=== PATIENT | female | born 1945 | race Caucasian/White ===

== ENCOUNTER 2019-11-05 16:56 | Inpatient (IN) ==
[2019-11-05] MEDS ORDERED: ASPIRIN PO ONE (17:07)
[2019-11-05] MEDS ORDERED: CARDIZEM IV ONE ×2 (17:27→20:19)
[2019-11-05 17:32] LABS: BASO# 0.04 X1000 (0.0-0.2); BASO% 0.4 % (0.0-0.8); EOS# 0.23 X1000 (0.0-0.7); EOS% 2.1 % (0.0-10.0); HEMATOCRIT 40.6 % (37.0-47.0); HEMOGLOBIN 13.2 g/dL (12.0-16.0); IMM GRAN# 0.02 X1000 (0.0-0.04); IMM GRAN% 0.2 % (0.0-0.5); LYMPH# 1.38 X1000 (1.2-3.4); LYMPH% 12.4 % (20.5-51.1); MCH 29.1 PG (27-31); MCHC 32.5 g/dL (33-37); MCV 89.4 FL (81-99); MONO# 1.51 X1000 (0.11-0.59); MONO% 13.6 % (1.7-9.3); MPV 11.6 FL (7.4-10.4); NEUT# 7.91 X1000 (1.4-6.5); NEUT% 71.3 % (42.2-75.2); PLT 248 X1000 (130-400); RBC 4.54 XMIL (4.2-5.4); RDW 14.1 % (11.5-14.5); WBC 11.09 X1000 (4.8-10.8)
--- NOTE | 2019-11-05 17:37 | Diag Imaging Result Doc PS360 ---
EXAM: CHEST-2 VIEWS 11/05/2019 HISTORY: cp TECHNIQUE: PA and lateral chest COMMENT: There are multiple surgical clips in the left axilla. There is increased interstitial markings bilaterally. This is definitely worse than on 12/14/2018. IMPRESSION: Mild interstitial pulmonary edema. Electronically signed by Malachi Russo 11/05/2019 5:34 PM
[2019-11-05 17:43] LABS: INR 1.03; PROTIME 13.7 Seconds (11.0-16.0)
--- NOTE | 2019-11-05 17:55 | EKG Report ---
Test Performed on : 11/05/2019 5:10:47 PM Test Reason : cp Blood Pressure : / mmHG Vent. Rate : 124 BPM Atrial Rate : 113 BPM P-R Int : 000 ms QRS Dur : 106 ms QT Int : 342 ms P-R-T Axes : 000 -52 102 degrees QTc Int : 491 ms Atrial fibrillation. with rapid ventricular response. Left axis deviation Possible Anterior infarct , age undetermined ST & T wave abnormality, consider lateral ischemia Abnormal ECG No previous ECGs available Unconfirmed Result
--- NOTE | 2019-11-05 18:19 | PROVIDER DOCUMENTATION ---
This chart was entered by Isabel Krishna Scribe, acting as scribe for Kevin Harris MD. HPI-Respiratory General - General Source: patient - History of Present Illness-Resp Onset/Duration: reports: 2 days ago Timing: reports: still present Cough Quality/Degree: reports: productive cough, sputum (green) Current Respiratory Medication Therapy: Initiated see nurses note Associated Symptoms: reports: fever/chills, shortness of breath Similar Symptoms Previously?: No Recently seen or treated by another doctor?: No <Kevin Harris - Last Filed: 11/05/19 18:19> <Edgar Calabrese - Last Filed: 11/05/19 20:20> - General Chief Complaint: Shortness of Breath Stated Complaint: "ENLARGED HEART PER URGENT CARE" Time Seen by Provider: 11/05/19 17:14 Allergies/Adverse Reactions: Patient Allergies Allergy/AdvReac Type Severity Reaction Status Date / Time Sulfa (Sulfonamide AdvReac NAUSEA Verified 11/05/19 18:23 Antibiotics) Home Medications: Home Medication List Medication Instructions Recorded Confirmed Last Taken Type Duloxetine HCl 60 mg PO DAILY 11/05/19 11/05/19 11/04/19 History Levothyroxine [Synthroid] 150 mcg PO DAILY 11/05/19 11/05/19 11/05/19 History Pramipexole Di-HCl [Pramipexole 0.5 mg PO DAILY 11/05/19 11/05/19 11/04/19 History Dihydrochloride] ROSUVAstatin [Crestor] 20 mg PO DAILY 11/05/19 11/05/19 11/04/19 History - History of Present Illness-Resp Nature of Presenting Problem: 74 y/o female was sent here from urgent care with complaint of low grade fever, worsening SOB, and cough with green sputum production times two days. The patient states she was recently diagnosed with a-fib two weeks ago while being screened for GI procedure with Dr. Mancini. (Kevin Harris) Review of Systems - Adult - REVIEW OF SYSTEMS - ADULT Constitutional: reports: fever. denies: night sweats, weight loss Eyes: reports: no symptoms reported Ears, Nose, Mouth & Throat: reports: no symptoms reported Cardiovascular: reports: no symptoms reported Respiratory: reports: cough (productive), excessive sputum production (green), shortness of breath Gastrointestinal: denies: diarrhea, nausea, vomiting Genitourinary: reports: no symptoms reported Musculoskeletal: reports: no symptoms reported Integumentary: reports: no symptoms reported Neurological: reports: no symptoms reported Psychiatric: reports: no symptoms reported Endocrine: reports: no symptoms reported Hematologic/Lymphatic: reports: no symptoms reported Allergic/Immunologic: reports: no symptoms reported All Other Systems: Reviewed and Negative <Kevin Harris - Last Filed: 11/05/19 18:19> Past History - Adult - PAST MEDICAL HISTORY-ADULT Review of Records: reports: Old Records Reviewed, Nursing Assessment Review, Medications Reviewed - IMMUNIZATION STATUS Childhood Immunizations: See Nurse Assessment Flu Vaccine: See Nurse Assessment - SOCIAL HISTORY Smoking: non-smoker Living Situation: family <Kevin Harris - Last Filed: 11/05/19 18:19> Physical Exam-General - PHYSICAL EXAM-ADULT Initial Vital Signs Reviewed: Yes - CONSTITUTIONAL General Appearance: alert, obese - HEAD, EARS, NOSE, MOUTH & THROAT HENMT: normocephalic/atraumatic, moist mucous membranes - NECK Neck: full range of motion, supple - RESPIRATORY Respiratory: lungs clear, normal breath sounds, wheezing, other (congestion clears with cough). negative: rales, rhonchi - CARDIOVASCULAR Cardiovascular: other (a-fib) - SKIN Integumentary: normal color, warm/dry - NEUROLOGIC Neurologic: grossly normal - PSYCHIATRIC Psych/Mental Status: normal mood/affect, normal thought content, normal thought process, oriented x 3 <Kevin Harris - Last Filed: 11/05/19 18:19> Progress - PLAN OF CARE/RESULTS Result Diagrams: 11/05/19 17:15 - EKG 1 Time of EKG reading by physician:: 17:10 EKG Read and Signed by:: Kevin Harris EKG Interpretation (*Must complete 3 of following elements*): Abnormal (ST and T wave abnormality consider lateral ischemia) Rate: 124 Rhythm: a-fib with RVR [place]: left ST Wave: non-specific ST changes Comments: possible anterior infarct age undetermined <Kevin Harris - Last Filed: 11/05/19 18:19> - PLAN OF CARE/RESULTS Result Diagrams: 11/05/19 17:15 11/05/19 18:01 - REASSESSMENT Reassessment #1 Time Reassessed: 20:16 (received @ S/[facility], pt still tachy, still SOB. Will admit) - CONSULTS/PCP/HOSPITALIST Notification #1 *Consult/PCP/Hospitalist*: Albino Time Discussed: 20:17 Consult Disposition: Will see in ED, Admit <Edgar Calabrese - Last Filed: 11/05/19 20:20> - PLAN OF CARE/RESULTS Progress/Plan/Lab Results: Vital Signs - 8 hr 11/05/19 17:03 11/05/19 17:47 11/05/19 17:53 Temperature 94 F L Pulse Rate 109 H 129 H 129 H Respiratory Rate 18 27 H 21 Blood Pressure 128/70 136/67 114/84 O2 Sat by Pulse Oximetry 96 93 L 94 L 11/05/19 18:33 11/05/19 18:42 Temperature 98.4 F Pulse Rate 129 H 120 H Respiratory Rate 18 18 Blood Pressure 118/72 O2 Sat by Pulse Oximetry 92 L 11/05/19 17:53 Influenza Screen - Final Nasopharyngeal Laboratory Results - last 24 hr 11/05/19 11/05/19 11/05/19 17:15 17:15 17:15 WBC 11.09 H RBC 4.54 Hgb 13.2 Hct 40.6 MCV 89.4 MCH 29.1 MCHC 32.5 L RDW Std Deviation 14.1 Plt Count 248 MPV 11.6 H Immature Gran % (Auto) 0.2 Neut % (Auto) 71.3 Lymph % (Auto) 12.4 L [place] % (Auto) 13.6 H Eos % (Auto) 2.1 Baso % (Auto) 0.4 Immature Gran # (Auto) 0.02 Neut # (Auto) 7.91 H Lymph # (Auto) 1.38 [place] # (Auto) 1.51 H Eos # (Auto) 0.23 Baso # (Auto) 0.04 PT 13.7 INR 1.03 PTT (Actin FS) 32.0 Sodium Potassium Chloride Carbon Dioxide Anion Gap BUN Creatinine Estimated GFR/1.73 m2 BUN/Creatinine Ratio Glucose Calculated Osmolality Calcium Magnesium Total Bilirubin AST ALT Alkaline Phosphatase Creatine Kinase Troponin T High Sens Iin-A-Qjgrzvilzmt Pept Total Protein Albumin Globulin Albumin/Globulin Ratio Plasma Lactate 1.0 TSH Thyroxine (T4) 11/05/19 11/05/19 11/05/19 18:01 18:01 18:01 WBC RBC Hgb Hct MCV MCH MCHC RDW Std Deviation Plt Count MPV Immature Gran % (Auto) Neut % (Auto) Lymph % (Auto) [place] % (Auto) Eos % (Auto) Baso % (Auto) Immature Gran # (Auto) Neut # (Auto) Lymph # (Auto) [place] # (Auto) Eos # (Auto) Baso # (Auto) PT INR PTT (Actin FS) Sodium Potassium Chloride Carbon Dioxide Anion Gap BUN Creatinine Estimated GFR/1.73 m2 BUN/Creatinine Ratio Glucose Calculated Osmolality Calcium Magnesium Total Bilirubin AST ALT Alkaline Phosphatase Creatine Kinase Troponin T High Sens 28 H Iwi-M-Kexkczomrqv Pept 882 H Total Protein Albumin Globulin Albumin/Globulin Ratio Plasma Lactate TSH 0.90 Thyroxine (T4) 9.48 11/05/19 18:01 WBC RBC Hgb Hct MCV MCH MCHC RDW Std Deviation Plt Count MPV Immature Gran % (Auto) Neut % (Auto) Lymph % (Auto) [place] % (Auto) Eos % (Auto) Baso % (Auto) Immature Gran # (Auto) Neut # (Auto) Lymph # (Auto) [place] # (Auto) Eos # (Auto) Baso # (Auto) PT INR PTT (Actin FS) Sodium 138 Potassium 3.9 Chloride 105 Carbon Dioxide 22 L Anion Gap 11 BUN 14 Creatinine 0.7 Estimated GFR/1.73 m2 > 60 BUN/Creatinine Ratio 20 Glucose 111 H Calculated Osmolality 277 Calcium 10.0 Magnesium 1.6 Total Bilirubin 0.52 AST 20 ALT 16 Alkaline Phosphatase 84 Creatine Kinase 123 Troponin T High Sens Msm-H-Mfkcofuhvln Pept Total Protein 6.6 Albumin 4.0 Globulin 2.6 Albumin/Globulin Ratio 1.5 Plasma Lactate TSH Thyroxine (T4) Orders Category Date Time Status Cardiac Monitoring DIRECTED Care 11/05/19 17:07 Active NEWS Score 2-4:Order NEWS Lactate Series NOW Care 11/05/19 17:06 Active Oxygen Therapy- ED Nursing DIRECTED Care 11/05/19 17:07 Active Saline Loc NOW Care 11/05/19 17:07 Active CHEST-2 VIEWS [RAD] Stat Exams 11/05/19 17:07 Completed CBC WITH ELECTRONIC DIFF [HEME] Stat Lab 11/05/19 17:15 Completed CK PROFILE [SP CHEM] Routine Lab 11/05/19 18:01 Completed COMPREHENSIVE METABOLIC PANEL [CHEM] Routine Lab 11/05/19 18:01 Completed INFLUENZA SCREEN A/B Stat Lab 11/05/19 17:53 Completed LACTATE, PLASMA [CHEM] Lab 11/05/19 17:15 Completed LACTATE, PLASMA [CHEM] Lab 11/05/19 20:45 Uncollected LACTATE, PLASMA [CHEM] Lab 11/05/19 23:45 Uncollected MAGNESIUM [CHEM] Routine Lab 11/05/19 18:01 Completed PRO B-NATRIURETIC PEPTIDE Routine Lab 11/05/19 18:01 Completed PROTIME WITH INR [COAG] Stat Lab 11/05/19 17:15 Completed PTT [COAG] Stat Lab 11/05/19 17:15 Completed T4 Routine Lab 11/05/19 18:01 Completed TROPONIN T HIGH SENSITIVITY Routine Lab 11/05/19 18:01 Completed TSH Routine Lab 11/05/19 18:01 Completed Albuterol 2.5MG/Ipratrop 0.5MG [Duoneb (A & A)] Med 11/05/19 18:26 Discontinued 3 ml INH NOW ONE Albuterol 2.5MG/Ipratrop 0.5MG [Duoneb (A & A)] Med 11/05/19 20:15 Once 3 ml INH NOW ONE Aspirin Med 11/05/19 17:07 Discontinued 325 mg PO NOW ONE Diltiazem [Cardizem] Med 11/05/19 17:27 Discontinued 25 mg IV NOW ONE Furosemide [Lasix] Med 11/05/19 20:09 Discontinued 40 mg IV NOW ONE Methylprednisolone Sod Succ [Solu-Medrol] Med 11/05/19 18:25 Discontinued 80 mg IV NOW ONE Aerosol Treatments Routine Oth 11/05/19 18:26 Completed Aerosol Treatments Routine Oth 11/05/19 20:15 Ordered Aerosol Treatments Stat Oth 11/05/19 18:26 Completed Aerosol Treatments Stat Oth 11/05/19 20:15 Ordered CP/SOB/Palp >45 yrs of Age Stat Oth 11/05/19 17:07 Ordered EKG [EKG] Stat Ther 11/05/19 17:07 Draft Departure <Kevin Harris - Last Filed: 11/05/19 18:19> - Departure Date of Disposition Decision: 11/05/19 Time of Disposition Decision: 20:17 Certified Medical Emergency: Emergent - Critical Care Note This patient required my direct & personal management of CC.: No <Edgar Calabrese - Last Filed: 11/05/19 20:20> - Departure DIAGNOSIS: Atrial fibrillation with rapid ventricular response, Congestive heart failure Disposition: ADMITTED INPATIENT 09 Condition: Good Referrals and Follow-Ups: None,PCP [Primary Care Provider] - Attestation - Physician/ JAIME Attestation Patient care was provided by Advanced Practice Provider:: No The physician spent face to face time with patient:: Yes Advanced Practice Provider documentation review:: Supervising physician onsite and consulted in the evaluation and care of this patient. The physician did have a face to face encounter with the patient. <Edgar Calabrese - Last Filed: 11/05/19 20:20> This chart was documented by the indicated scribe, (Isabel Krishna, Scribe) and accurately reflects the services I performed and decisions made by me, Kevin Harris MD, as attested by the provider's signature.
[2019-11-05] MEDS ORDERED: SOLU-MEDROL IV ONE (18:25)
[2019-11-05] MEDS ORDERED: DUONEB (A & A) INH ONE ×2 (18:26→20:15)
[2019-11-05 18:34] LABS: AGAP 11; ALB/GLOB RATIO 1.5; ALKALINE PHOSPHATASE 84 U/L (32-104); BUN 14 mg/dL (8-22); CHLORIDE 105 mmol/L (98-107); CK PROFILE 123 U/L (24-173); COSMO 277; CREATININE 0.7 mg/dL (0.5-0.9); ESTIMATED GFR > 60; GLUCOSE 111 mg/dL (70-104); GOT 20 U/L (10-30); GPT 16 U/L (10-36); MAGNESIUM 1.6 mg/dL (1.5-2.7); POTASSIUM 3.9 mmol/L (3.5-5.1); SODIUM 138 mmol/L (136-145); TCO2 22 mmol/L (25-35); TOTAL BILIRUBIN 0.52 mg/dL (0.20-1.00); TOTAL PROTEIN 6.6 g/dL (6.3-8.3)
[2019-11-05 18:53] LABS: T4 9.48 ug/dL (4.60-12.00); TSH 0.9 uIUmL (0.27-4.20)
[2019-11-05] MEDS ORDERED: LASIX IV ONE (20:09)
[2019-11-05] MEDS: CARDIZEM 100 MG/NS 100 MG/100 ML IVPB IV SCH (21:03)
[2019-11-05] MEDS ORDERED: ZOFRAN IV PRN (21:27)
[2019-11-05] MEDS: NS 1,000 ML IV SCH (21:30)
[2019-11-05] MEDS ORDERED: ZITHROMAX 500 MG/NS 500 MG/250 ML IVPB IV ONE (21:32)
[2019-11-05] MEDS ORDERED: NS NEB INH SCH (21:45)
--- NOTE | 2019-11-05 22:21 | HISTORY AND PHYSICAL ---
I have seen and examined Ms. Gregorio today. The was at the bedside at the time of the encounter. Oncologist is Dr. Hawkins. Cabinet Worker is Dr. Mancini. PRESENTING COMPLAINT: Abnormal heart rhythm, cough. HISTORY OF PRESENTING COMPLAINT: Ms. Gregorio is a 74-year-old elderly female who is known to have restless legs syndrome, hypothyroidism, dyslipidemia, survive of breast cancer status post left mastectomy. Patient refers that about 2 weeks ago she went to do EGD and colonoscopy and before the procedure was done pre evaluation EKG did showed that she had atrial fibrillation so the procedure was canceled and was advised to go and see her lion tamer. She went to see Dr. Mancini. Some investigations were ordered. Unfortunately about a week ago she could not do those tests because she had the flu symptoms. She has been rescheduled to see Dr. Mancini next coming Thursday. Unfortunately said she has been battling with this persistent worsened cough with dark brown expectoration so she went to an urgent care today this afternoon and was also found to be in atrial fibrillation RVR was advised to come to emergency room for further medical care. Upon presenting she was evaluated and initial EKG did show that she was in atrial fibrillation with RVR. She was given 25 mg of Cardizem however her heart rate continues to be in rapid ventricular response so she has been admitted for atrial fibrillation, RVR. PAST MEDICAL HISTORY: 1. Dyslipidemia. 2. Hypothyroidism. 3. Restless leg syndrome. 4. Survival of a breast cancer. PAST SURGICAL HISTORY: 1. Left mastectomy. 2. deliveries. 1. Total hysterectomy. FAMILY HISTORY: Positive for dad coronary artery disease also had pacemaker. ALLERGIES: To sulfa. SOCIAL HISTORY: Patient denies any tobacco use, occasionally will take a glass of wine. No recreational drug use. REVIEW OF SYSTEM: 14 point review of system conducted with Ms. Gregorio unremarkable except what we have in the HPI. OBJECTIVE: Vitals: Blood pressure is currently 118/72, pulse of 120, respiration is 18, temperature 98.4 degrees, patient is saturating 92%. General: Ms. Gregorio is a 74-year-old elderly female she is in bed. She does not seems to be in any distress however, she continues to have this deep cough. HEENT: Mucosa is pink and moist. Anicteric. Acyanotic. Neck: Supple. Chest: Air entry was bilateral reduced. There seems to be mildly prolonged expiratory phase of respiration. There is some few distant wheezing in both lung kohli. Cardiovascular: Irregularly irregular and tachycardic, no murmurs. Leo beat is at 5th intercostal space midclavicular line. There is mastectomy scar on the left anterior chest wall. Abdomen: Soft, nontender. Bowel sounds present. There is a low-lying surgical scar. Bowel sounds present. There is no hepatosplenomegaly. Extremities: No pedal edema. Distal pulses present. STARCHER AND TENTER RANGE FEEDER: Patient is awake, alert, oriented x4. Motor is 5/5, sensation is intact. Cranial nerves 2-12 have been grossly examined and they are unremarkable. Influenza is negative. LABORATORY DATA: WBC is 11.09, hemoglobin is 13.2, platelet count of 248,000. Chemistry is also reviewed is unremarkable. ASSESSMENT: Ms Gregorio 74-year-old female who has been found to have atrial fibrillation about 2 weeks ago, went to see a lion tamer but was not in atrial fibrillation at the time has been battling with some lower respiratory tract infection lately, went to Urgent Care was found to be in atrial fibrillation and she is currently being admitted for atrial fibrillation with rapid ventricular response. 1. Paroxysmal atrial fibrillation with rapid ventricular response, patient was given a dose of Cardizem but did not improve so she is currently on Cardizem drip. She is a 74-year-old female with more than 1 CHADS2-VASc score risk so is reasonable to start her on anticoagulation as well. I will consult her lion tamer to evaluate her for further medical care. 2. Lower respiratory tract infection (bronchitis) Ms. Gregorio has some respiratory findings. Chest x-ray was not very conclusive so we are going to get a CT scan of the lungs and mainly because she also has a remote history of breast cancer we are going to make sure that we are not missing any other disease process. Ms. Gregorio will be started on azithromycin IV, nebulization and culture the sputum. 3. Suspected obstructive sleep apnea. Patient has been advised to follow up with sleep studies. 4. Hypothyroidism. TSH is normal, will continue with her home dose. 5. Restless leg syndrome, patient is on pramipexole, this has been restarted back. 6. Dyslipidemia. cc: Eran Posada MD [facility]
[2019-11-06] MEDS: LOVENOX SUBQ SCH ×3 (00:49→20:21)
[2019-11-06] MEDS: CARDIZEM 100 MG/NS 100 MG/100 ML IVPB IV SCH (05:23)
[2019-11-06] MEDS: SYNTHROID PO SCH (06:04)
[2019-11-06 06:38] LABS: INR 1.12; PROTIME 14.5 Seconds (11.0-16.0)
[2019-11-06 06:45] LABS: BASO# 0.01 X1000 (0.0-0.2); BASO% 0.1 % (0.0-0.8); HEMATOCRIT 38.2 % (37.0-47.0); HEMOGLOBIN 12.4 g/dL (12.0-16.0); LYMPH# 0.52 X1000 (1.2-3.4); LYMPH% 5.2 % (20.5-51.1); MCH 28.8 PG (27-31); MCHC 32.5 g/dL (33-37); MCV 88.8 FL (81-99); MONO# 0.11 X1000 (0.11-0.59); MONO% 1.1 % (1.7-9.3); MPV 12.2 FL (7.4-10.4); NEUT# 9.34 X1000 (1.4-6.5); NEUT% 93.6 % (42.2-75.2); PLT 241 X1000 (130-400); WBC 9.98 X1000 (4.8-10.8)
[2019-11-06] MEDS ORDERED: ROBITUSSIN-AC PO PRN (07:06)
[2019-11-06 07:14] LABS: AGAP 16; ALB/GLOB RATIO 1.4; ALBUMIN 3.7 g/dL (3.5-5.0); ALKALINE PHOSPHATASE 74 U/L (32-104); BUN 11 mg/dL (8-22); CALCIUM 9.8 mg/dL (8.8-10.2); CHLORIDE 103 mmol/L (98-107); COSMO 283; CREATININE 0.6 mg/dL (0.5-0.9); ESTIMATED GFR > 60; GLUCOSE 149 mg/dL (70-104); GOT 19 U/L (10-30); GPT 15 U/L (10-36); MAGNESIUM 1.4 mg/dL (1.5-2.7); POTASSIUM 3.8 mmol/L (3.5-5.1); SODIUM 141 mmol/L (136-145); TCO2 22 mmol/L (25-35); TOTAL BILIRUBIN 0.48 mg/dL (0.20-1.00); TOTAL PROTEIN 6.3 g/dL (6.3-8.3)
[2019-11-06 07:15] LABS: LYMPHS 8 % (21-51); MONO 2 % (1-9); SEGS 90 % (42-75)
--- NOTE | 2019-11-06 07:49 | Diag Imaging Result Doc PS360 ---
EXAM: CT THORAX W/CONTRAST 11/05/2019 HISTORY: cough TECHNIQUE: This exam was performed using automated exposure control, adjustment of mA or kV according to patient size, and/or use of iterative reconstruction technique. COMMENT: There are no previous thoracic studies available for comparison. Comparison is made with the abdominal study of 09/29/2019 were possible. There are number of prevascular and paratracheal nodes which are nonspecific in appearance and one large node at the level of the azygos vein which measures 2.2 x 1.9 cm. There is an anterior aorticopulmonary window node measuring over 1.6 cm. There is also right hilar adenopathy and subcarinal adenopathy. There are some calcified nodes present in the right hilum which were also visible on the previous abdominal study. There are calcifications in the mitral valve annulus. There are no abnormal fluid collections. There are some interstitial and thicker linear opacities in the lower lung kohli which are probably due to fibrosis and atelectasis. This appears slightly worse than on the previous examination. There are some ill-defined small opacities present in the right upper lobe most notably on image 42. This was not included on the abdominal study. The larger opacity measures less than 11 mm in diameter. IMPRESSION: Nonspecific pulmonary opacities particularly in the right upper lobe. Follow-up CT may be desirable. This may represent minimal bronchopneumonia. Mediastinal and right hilar adenopathy. Electronically signed by Malachi Russo 11/06/2019 7:46 AM
[2019-11-06] MEDS: CRESTOR PO SCH (08:08)
[2019-11-06] MEDS: ZITHROMAX 500 MG/NS 500 MG/250 ML IVPB IV SCH (08:08)
[2019-11-06] MEDS: CYMBALTA PO SCH (08:08)
[2019-11-06] MEDS: MIRAPEX PO SCH (08:09)
[2019-11-06] MEDS: NS 1,000 ML IV SCH ×2 (09:23→18:32)
[2019-11-06] MEDS ORDERED: TESSALON PO PRN (10:08)
[2019-11-06] MEDS: ROCEPHIN 1 GM in NS 50 ML IV SCH (11:06)
[2019-11-06] MEDS ORDERED: MAGNESIUM SULFATE 2 GM/S.W.I. 2 GM/50 ML IVPB IV ONE (13:15)
--- NOTE | 2019-11-06 13:58 | PROGRESS NOTE ---
DATE: 11/06/2019 INTERVAL HISTORY: The patient remains in remains on diltiazem drip which appears to be controlling heart rate. She remains in atrial fibrillation. Still complaining of some largely nonproductive cough but no dyspnea, fever, chills. Afebrile overnight. No new complaints. REVIEW OF SYSTEMS: Twelve point review of systems negative except as per interval history. LABS: WBC 9.9, hemoglobin 12.4, hematocrit 38.2, platelets 241,000. INR 1.1. Sodium 141, potassium 3.8, BUN 11, creatinine 0.6, glucose 149, magnesium 1.4. VITALS: T-max 99 degrees, pulse 88, respirations 24, blood pressure 128/66, O2 saturation 96% on 2 L by nasal cannula. IMAGING: CT chest with nonspecific pulmonary opacities favored to represent mild bronchopneumonia. Also some adenopathy that may need followup CT in a few months. PHYSICAL EXAMINATION: General: No acute distress. Vitals: As above. HEENT: Normocephalic, atraumatic. Moist mucous membranes. No cervical adenopathy. Cardiovascular: Irregular rhythm but normal rate. No murmurs noted. Pulmonary: Occasional scattered rales that largely clear with cough otherwise clear to auscultation bilaterally. Abdomen: Soft, nontender, nondistended. Bowel sounds positive. Extremities: Peripheral pulses intact. No clubbing, cyanosis or edema. Neurologic: Cranial nerves grossly intact. No focal deficits. Psychiatric: Normal mood and affect. Awake, alert, oriented x3. ASSESSMENT AND PLAN: 1. Atrial fibrillation with rapid ventricular response. Patient is rate controlled on diltiazem drip. Troponin minimally elevated initially at 28 and trended down to 19. It does not appear to be acute coronary syndrome. Hopefully, we will be able to transition to oral diltiazem in the next 24 to 48 hours. Cardiology following. 2. Likely a mild pneumonia. Chest x-ray did not show much so initially bronchitis was favored as her diagnosis but CT chest did suggest mild pneumonia. Because of this, we added Rocephin to the azithromycin she was initially placed on to cover her for community-acquired pneumonia. The patient's primary complaint is cough so we will go ahead and add some Tessalon as well. 3. Restless legs syndrome. Continue patient's home Mirapex. 4. Hypothyroidism. Continue patient's home Synthroid. 5. Obesity. Patient has been counseled on diet and exercise. 6. Hypomagnesemia. Will replete and monitor.
--- NOTE | 2019-11-06 14:51 | CARDIOLOGY CONSULTATION ---
DATE: 11/06/2019 REASON FOR CONSULTATION: Cardiology was consulted for atrial fibrillation. She is admitted with pneumonia. HISTORY OF PRESENT ILLNESS: Ms. Gregorio is a 74-year-old, lady, who has history of hypothyroidism, dyslipidemia, has had breast cancer in the past. Two weeks ago, she underwent upper GI endoscopy and colonoscopy, and was noted to have had atrial fibrillation. She was set up for testing. However, she has been having persistent cough with expectoration, came to the emergency room, was admitted. She was noted to be in atrial fibrillation with rapid ventricular rate, started on a Cardizem drip. She denies any chest pain. There is no orthopnea. No history of recent fevers. Her WBC was 11.09, hemoglobin 13.2, hematocrit 40, platelet count of 248,000. CT of the chest was done, which revealed nonspecific pulmonary opacities in the right upper lobe, may represent bronchopneumonia. The patient was started on antibiotics. The patient has been still having persistent coughs. REVIEW OF SYSTEMS: A 14-point review of systems was done. GI: There is no history of nausea, vomiting, or diarrhea. There is no history of hematemesis or melena. Central Nervous System: No focal weakness to suggest a CVA or TIA. : There is no dysuria or hematuria. PAST MEDICAL HISTORY: History of breast cancer, restless legs syndrome, hypothyroidism, dyslipidemia, left mastectomy, section. HOME MEDICATIONS: Include Crestor 20, levothyroxine 150, duloxetine. ALLERGIES: She is allergic to sulfonamides. SOCIAL HISTORY: She denies tobacco or alcohol abuse. PHYSICAL EXAMINATION: Vital Signs: Blood pressure 118/72. Neck: Jugular venous pressure was normal. There was no thyromegaly. There is no carotid bruit. Cardiovascular: First and second heart sounds were heard. Irregular. There was no S3 gallop. Respiratory: Bilateral expiratory wheeze. Abdomen: Soft, nontender. There was no guarding or rigidity. Bowel sounds were heard. Central Nervous System: Alert and oriented, was moving all 4 extremities. Extremities: No pedal edema. HEENT: Atraumatic, normocephalic. Pupils were equal and reacting to light. ASSESSMENT AND PLAN: Ms. Charity Gregorio is a 74-year-old, lady with: 1. History of having had recent atrial fibrillation, is admitted with cough with expectoration and has community-acquired pneumonia, has been started on antibiotics. 2. Atrial fibrillation. She is on Cardizem. We will discontinue the Cardizem, and put her on Cardizem CD 180 mg a day. 3. Will get an echocardiogram to assess cardiac and valvular function. 4. Hypothyroidism. The patient is on Synthroid. Would recommend continuing with that. 5. She is hypomagnesemic, which is being repleted. Thank you for the consult. Will follow hospital course. cc: Roderick Mancini MD
[2019-11-06] MEDS: CARDIZEM CD PO SCH (15:09)
--- NOTE | 2019-11-06 17:16 | ECHO REPORT ---
ORDER DATE: 11/06/2019 STUDY: 2D echocardiogram. ECHOCARDIOGRAPHIC MEASUREMENTS: 1. Interventricular septum 1.5 cm. 2. Left ventricular posterior wall 1.0 cm. 3. Diastolic diameter 5.1 cm. Left atrium 4.6 cm. 4. Aorta 3.4 cm. 5. Aortic valve leaflets were sclerosed, trileaflet opening normally. 6. Pulmonic valve was normal. 7. Mitral valve was normal. There is moderate mitral annular calcification. 8. Tricuspid valve was normal. There is mild mitral regurgitation. 9. Mild tricuspid regurgitation. Normal left ventricular cavity size. Estimated ejection fraction of 55% to 60%. 10. Peak velocity across the aortic valve was 2 m/sec. There is no aortic stenosis. There is aortic sclerosis. 1. There is grade 1 diastolic dysfunction. 2. Peak velocity across the tricuspid valve was 2.4 m/sec. 3. Pulmonary artery systolic pressure of 32 mmHg. 4. There is left atrial enlargement. 5. There is no pericardial effusion or obvious intracardiac mass or thrombus seen. 6. Anterior echo-free space suggestive of pericardial fat pad noted. cc: MD Eran Lei MD
[2019-11-06 22:20] LABS: URINE SOURCE CLEAN CATCH
[2019-11-06 22:25] LABS: BILIRUBIN URINE NEGATIVE (NEGATIVE); BLOOD URINE NEGATIVE (NEGATIVE); COLOR YELLOW; GLUCOSE URINE NEGATIVE (NEGATIVE); KETONE URINE NEGATIVE (NEGATIVE); LEUKOCYTES URINE NEGATIVE (NEGATIVE); NITRITE URINE NEGATIVE (NEGATIVE); PROTEIN URINE TRACE mg/dL (NEGATIVE); SP GRAVITY URINE 1.026; TURBIDITY URINE CLEAR (CLEAR); UR EPITHELIAL CELLS <10 /HPF (<10); URINE BACTERIA NEGATIVE /HPF; URINE RBC <10 /HPF (<10); URINE WBC <10 /HPF (<10); UROBILINOGEN URINE NORMAL (NORMAL)
[2019-11-07] MEDS: NS 1,000 ML IV SCH ×2 (00:40→10:05)
[2019-11-07 06:00] LABS: BASO# 0.03 X1000 (0.0-0.2); BASO% 0.2 % (0.0-0.8); HEMATOCRIT 37.2 % (37.0-47.0); HEMOGLOBIN 11.9 g/dL (12.0-16.0); IMM GRAN# 0.02 X1000 (0.0-0.04); IMM GRAN% 0.2 % (0.0-0.5); LYMPH# 1.36 X1000 (1.2-3.4); LYMPH% 10.7 % (20.5-51.1); MCH 29.4 PG (27-31); MCV 91.9 FL (81-99); MONO# 1.74 X1000 (0.11-0.59); MONO% 13.6 % (1.7-9.3); MPV 12.1 FL (7.4-10.4); NEUT% 75.3 % (42.2-75.2); PLT 216 X1000 (130-400); RBC 4.05 XMIL (4.2-5.4); RDW 14.5 % (11.5-14.5); WBC 12.75 X1000 (4.8-10.8)
[2019-11-07] MEDS: SYNTHROID PO SCH (06:08)
[2019-11-07 06:27] LABS: AGAP 11; BUN 15 mg/dL (8-22); CALCIUM 9.4 mg/dL (8.8-10.2); CHLORIDE 109 mmol/L (98-107); COSMO 281; CREATININE 0.6 mg/dL (0.5-0.9); ESTIMATED GFR > 60; GLUCOSE 116 mg/dL (70-104); POTASSIUM 4.2 mmol/L (3.5-5.1); SODIUM 140 mmol/L (136-145); TCO2 20 mmol/L (25-35)
[2019-11-07] MEDS: MIRAPEX PO SCH (08:23)
[2019-11-07] MEDS: CARDIZEM CD PO SCH (08:23)
[2019-11-07] MEDS: CYMBALTA PO SCH (08:23)
[2019-11-07] MEDS: CRESTOR PO SCH (08:23)
[2019-11-07] MEDS: LOVENOX SUBQ SCH (08:24)
[2019-11-07] MEDS: ZITHROMAX 500 MG/NS 500 MG/250 ML IVPB IV SCH (08:24)
[2019-11-07] MEDS: XOPENEX NEB INH PRN ×2 (08:47→16:38)
[2019-11-07] MEDS: TYLENOL PO PRN (11:05)
[2019-11-07] MEDS ORDERED: SOLU-MEDROL IV ONE (11:54)
--- NOTE | 2019-11-07 12:19 | PROGRESS NOTE ---
DATE: 11/07/2019 SUBJECTIVE: This morning, Ms. Gregorio refers to be doing well, but she continues to be wheezing and coughing. She said she is not feeling as great as she was yesterday. OBJECTIVE: Vital Signs: Blood pressure is 137/58, pulse of 83, respirations 24, temperature 98.8 degrees. General: Ms. Gregorio is a 74-year-old, elderly, female. She is in bed. No distress. HEENT: Mucosa is pink and moist. Anicteric. Acyanotic. Neck: Supple. Chest: Air entry was bilaterally reduced. There is diffuse expiratory wheezing in both lung kohli. Cardiovascular: Irregularly irregular, but rate controlled. No murmurs. GI: Abdomen is soft, nontender. Bowel sounds are present. Extremities: No pedal edema. CRUISE COORDINATOR: The patient is awake, alert, and oriented. No focal deficit. LABORATORY DATA: Laboratory data has been reviewed. WBC is 12.72, hemoglobin is 11.9, platelet count of 216,000. Chemistry is also reviewed and is unremarkable. IMAGING: Imaging studies have all been reviewed. No changes. ASSESSMENT: 1. Paroxysmal atrial fibrillation with rapid ventricular response. The patient's drip has been turned off. He is currently on oral Cardizem. He is still in atrial fibrillation, but rate is better controlled. 2. Respiratory distress associated with bronchospasm secondary to acute bronchitis. The patient is on antimicrobial coverage. So far, sputum culture is negative. Will also add steroids to see if we will be able to control the acute lung inflammation. 3. Suspected obstructive sleep apnea. The patient has been advised to follow up with sleep studies. 4. Hypothyroidism. Will continue with medications. 5. History of restless legs syndrome. 6. Morbid obesity. Body mass index of 33.5. Weight management is advised. 7. Hypomagnesemia, improved. In general, this morning we are going to discontinue the intravenous fluids. We have also added steroids to the patient's current medications. She continues to be remarkably bronchospastic. Will continue with the breathing treatment. Will follow up with further recommendations from Cardiology on the patient's atrial fibrillation. Ms. Gregorio is on therapeutic Lovenox. We will switch this to oral Eliquis. cc: Eran Posada MD
[2019-11-07] MEDS: ROCEPHIN 1 GM in NS 50 ML IV SCH (13:14)
[2019-11-07] MEDS: MUCOMYST 20% PO SCH (20:27)
[2019-11-07] MEDS: ELIQUIS PO SCH (20:27)
[2019-11-08] MEDS: TYLENOL PO PRN (00:04)
[2019-11-08] MEDS: SYNTHROID PO SCH (06:12)
[2019-11-08 06:32] LABS: AGAP 13; ALBUMIN 3.3 g/dL (3.5-5.0); BUN 14 mg/dL (8-22); CALCIUM 9.6 mg/dL (8.8-10.2); CHLORIDE 109 mmol/L (98-107); COSMO 288; CREATININE 0.5 mg/dL (0.5-0.9); ESTIMATED GFR > 60; GLUCOSE 116 mg/dL (70-104); PHOSPHORUS 2.6 mg/dL (2.7-4.5); POTASSIUM 4.4 mmol/L (3.5-5.1); SODIUM 144 mmol/L (136-145); TCO2 22 mmol/L (25-35)
--- NOTE | 2019-11-08 07:28 | Diag Imaging Result Doc PS360 ---
EXAM: CHEST-2 VIEWS HISTORY: hypoxia TECHNIQUE: Two views COMPARISON: 11/05/2019 FINDINGS: Poor inspiratory effort. No cardiomegaly. Mild increased interstitial markings. No consolidation. Trace pleural fluid. Surgical clips in the left axilla and there has been left-sided mastectomy. IMPRESSION: No interval improvement Electronically signed by James Hernandez 11/08/2019 7:26 AM
[2019-11-08] MEDS: ZITHROMAX 500 MG/NS 500 MG/250 ML IVPB IV SCH (08:27)
[2019-11-08] MEDS: MUCOMYST 20% PO SCH (08:27)
[2019-11-08] MEDS: CRESTOR PO SCH (08:28)
[2019-11-08] MEDS: CYMBALTA PO SCH (08:28)
[2019-11-08] MEDS: MIRAPEX PO SCH (08:28)
[2019-11-08] MEDS: CARDIZEM CD PO SCH (08:28)
[2019-11-08] MEDS: ELIQUIS PO SCH (08:28)
[2019-11-08] MEDS ORDERED: SOLU-MEDROL IV SCH (09:00)
[2019-11-08] MEDS: XOPENEX NEB INH PRN (09:25)
[2019-11-08 11:26] VITALS: BP 148/93
--- NOTE | 2019-11-08 14:16 | DISCHARGE SUMMARY ---
ADMISSION DATE: 11/05/2019 DISCHARGE DATE: HISTORY OF PRESENT ILLNESS: Has no primary care physician they reported, although I think she told me she has one in [place]. Presented on 11/05/2019. She had palpitations, abnormal heart rhythm, cough. Her marketing services specialist is Dr. Mancini. This is a 74-year-old, female who is known to have restless legs syndrome, hypothyroidism, dyslipidemia, survival of breast cancer, status post left mastectomy. The patient reports that about 2 weeks ago, she was sent to do an EGD and get a colonoscopy. Before the procedure was done, per evaluation, EKG showed she was in atrial fibrillation so the procedure was canceled. Advised to go see her marketing services specialist. She went to see Dr. Mancini. Some investigations were ordered. Unfortunately, about a week ago, she could not do these tests because she had flu symptoms so she rescheduled, saw Dr. Mancini the following week. Unfortunately, she had been battling with this persistent worsening cough, dark brown expectoration, so she went to urgent care and was found to be in atrial fibrillation with rapid ventricular rate, and advised to go to the emergency room. PAST MEDICAL HISTORY: Includes: 1. Dyslipidemia. 2. Hypothyroidism. 3. Restless legs syndrome. 4. Survivor of breast cancer. PAST SURGICAL HISTORY: 1. Mastectomy. 2. deliveries. ADMISSION DIAGNOSES: 1. Paroxysmal atrial fibrillation with rapid ventricular response. The patient was given one dose of Cardizem but did not improve so she was put on a Cardizem drip. Her CHADS-VASc score scored more than 1 and so felt reasonable to start her on anticoagulation. Cardiology was involved. 2. Upper respiratory tract infection, bronchitis. She had some respiratory findings on x-ray that were not conclusive so the plan was to get a CT scan. She does have a remote history of breast cancer. 3. Suspected obstructive sleep apnea and had been advised to follow up for sleep studies. 4. Hypothyroidism. 5. Restless legs syndrome. 6. Dyslipidemia. HOSPITAL COURSE: On presentation on 11/05/2019, her chest x-ray showed mild interstitial pulmonary edema. Her chest CT revealed nonspecific pulmonary opacities, particularly in the right upper lobe. Followup CT was suggested. She represented some minimal bronchopneumonia, mediastinal and right hilar adenopathy. Echocardiogram was done on 11/06/2019. There was a grade 1 diastolic dysfunction. Peak velocity across the tricuspid valve was 2.4 m/sec. Pulmonary arterial pressure was 32 mmHg. There was left atrial enlargement. There was no pericardial effusion or obvious intracardiac mass or thrombus seen. Anterior echo-free space suggestive of pericardial fat pad. Cardiology was consulted. She has a history of recent atrial fibrillation, admitted with cough and expectoration, and had a community-acquired pneumonia it was thought so put her on antibiotics. Atrial fibrillation, she is on Cardizem. Discontinued the IV Cardizem and put her on Cardizem CD 180 mg daily. She did get an echocardiogram. Left ventricular function looked good. No significant valvular dysfunction. She has a history of hypothyroidism. She has been on Synthroid. Appears to be euthyroid. She did have some low magnesium and that was supplemented. Followup chest x-ray on 11/08/2019, poor inspiratory effort. No cardiomegaly. Mild increased interstitial markings. Really no significant change. Clinically, she felt much better, was requesting to go home. Cardiology felt she was ready as well. DISCHARGE DIAGNOSES: 1. Paroxysmal atrial fibrillation with rapid ventricular response. Patient's intravenous Cardizem drip had been stopped. She is on oral Cardizem so we will discharge her home with that. [place] she needed anticoagulation. 2. Respiratory distress associated with bronchospasm and some pulmonary venous hypertension, and also acute bronchitis and postnasal drainage. She improved clinically. No sign of fever or chills. 3. Suspect obstructive sleep apnea. I want her to follow up with sleep studies. 4. Hypothyroidism. Continue her Synthroid. 5. History of restless legs syndrome. Continue present medication. 6. Morbid obesity. Body mass index is 33.5 so I encouraged her to pursue weight management and low carbohydrate diet. 7. Had some hypomagnesemia and that has been replenished. DISCHARGE MEDICATIONS: 1. Eliquis 5 mg b.i.d. 2. Tessalon Perles 100 mg p.o. t.i.d. p.r.n. 3. Cardizem CD 180 mg daily. 4. Cymbalta 60 mg a day. 5. Robitussin AC, she can continue to use for cough. 6. Synthroid 150 mcg p.o. daily. 7. I will put her on a Medrol Dosepak and stop her Solu-Medrol. 8. Mirapex for restless legs 0.5 mg p.o. daily. 9. Crestor 20 mg a day. FOLLOWUP: She will follow up with her primary care and Dr. Mancini in the next couple of weeks. cc: Ehsan Hutchison MD
== END 2019-11-08 14:56 | disposition home or self-care (01) | DRG 308 ==
LOC: ED 16:56 → SUATTDRO 16:57 → EDIPHOLD 21:59 → 2N 11-06 01:05
PROVIDERS: ATTEND Emergency Medicine